=== PATIENT | male | born 1955 | race Caucasian/White ===

== ENCOUNTER 2022-03-31 11:05 | Observation (INO) ==
--- NOTE | 2022-03-31 11:48 | Emergency Department Note ---
Impression & Plan Weakness, CARRENO (dyspnea on exertion), Light-headed ED Provider Note Provider: Mg Albarran MD DATE OF SERVICE: 03/31/2022 CHIEF COMPLAINT: Shortness of breath/dizziness HISTORY OF PRESENT ILLNESS: Patient is a 66-year-old gentleman past medical history of hypertrophic valve replacement, CAD and CABG, hypertension, nonsustained ventricular tachycardia presenting here today after experiencing some shortness of breath and dizziness/lightheadedness after going up 3 flights of stairs today while cleaning an apartment. Patient states he was volunteering helping out this morning after coming up about 3 flights of stairs began to feel lightheaded and short of breath. Denies any chest pain or pressure. States in the past week his been feeling somewhat fatigued. 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 Denies any significant palpitations recently. Again denies chest pain. Denies abdominal symptoms of nausea vomiting or diarrhea. Denies significant leg swelling. States just some generalized fatigue. Denies significant dizziness now or shortness of breath but again this was a bit earlier. Patient states he has been compliant with his aspirin at home. States occasionally has some vertigo issues related to his years but not currently denies recent bug bites or rashes. Denies URI symptoms. REVIEW OF SYSTEMS: A total of 10 review of systems was obtained and negative except as stated above in the HPI. PAST MEDICAL HISTORY: As noted above MEDICATIONS:reviewed home medications SOCIAL HISTORY: Denies smoking PHYSICAL EXAM: GENERAL: alert and oriented in no acute distress on stretcher Head: normocephalic and atraumatic EYES: No injection, discharge or icterus. NECK: Trachea midline. ENT: Mucous membranes pink and moist. LUNGS: Airway patent. No retractions. Breath sounds clear with good air entry bilaterally. HEART: Regular rate and rhythm. No chest wall tenderness ABDOMEN: Soft and non-tender, without guarding or rebound. SKIN: Acyanotic, warm, dry, without rashes EXTREMITIES: Without swelling, tenderness or deformity NEUROLOGICAL: No focal deficits. No aphasia. No facial droop or slurred speech. Ambulatory. EK bpm normal sinus rhythm. No PVC or PAC noted. Left axis and right bundle branch block are noted. No acute ST segment elevation is noted. Previous from the [facility] medical record from December 28 of this year, appears similar. CONTINUOUS CARDIAC MONITORING: was ordered and showed a heart rate of 50s-60s bpm in normal sinus rhythm to sinus bradycardia Patient's laboratory studies and imaging reviewed. Differential includes Infection, dehydration, metabolic abnormality, hypo/hyperglycemia, electrolyte disturbance, anemia, hypoxia, cardiac sources, intracerebral event, toxicologic, neurologic, as well as other pathologies. IMPRESSION/MEDICAL DECISION MAKING: No significant GI symptoms of benign abdomen. No significant focal deficits and have low suspicion at this time for CVA. Symptoms seem somewhat exertionally provoked due to coming up the stairs but without chest pain. Does have a history of arrhythmia but denies significant palpitations. No obvious arrhythmia noted here although he again he has been weaning his amiodarone. Rec ords indicate he had a cardiac catheterization performed last March 12 months ago with nonobstructive CAD. Lyme and anaplasmosis testing was sent as well as COVID testing. Blood work without anemia or leukocytosis. Chest x-ray unremarkable. LFTs unremarkable. Urinalysis negative. COVID-negative. Chemistries without significant abnormality beyond some hyperglycemia of 221. Patient did eat earlier. Troponin is not significantly elevated. Again denies any actual chest pain or pressure. Lyme test negative. Reassessed the patient and girlfriend at bedside. Further discussion he states this is actually a separate episode of having a bit of lightheadedness and bit of shortness of breath going up the stairs today and yesterday walking to get a photo about 150 yards began to experience similar symptoms. No focal symptoms or slurred speech and doubt this represents CVA. Girlfriend relays there is been multiple episodes over the last week or 2. Heart score is elevated just based on risk factors. Discussed with him options of outpatient follow-up versus observation but given the multiple recurrent episodes discussed that observation may be best option with further evaluation. He and girlfriend were in agreement and the hospitalist was contacted. DIAGNOSIS: Weak, dyspnea on exertion, lightheaded DISPOSITION: Hospitalist will evaluate Patient was agreeable with this plan. Past Med/Surg History Social History Smoking Status: Never smoker Second Hand Exposure: No; Hx Alcohol Use: Yes Hx Substance Use: No Preferred Language: German Portable Trackman Required: Yes Beliefs That Will Affect Care: None Current Living Situation: Significant Other Feels Safe at Home: Yes Assistive Devices: None Allergies Allergies Allergy/AdvReac Type Severity Reaction Status Date / Time niacin Allergy Intermediate FLUSHING Verified 07/12/16 22:35 atorvastatin Allergy Unknown MUSCLE Verified 07/12/16 22:35 ACHES Home Meds Home Medications Medication Instructions Recorded Confirmed amiodarone 200 mg tablet 200 mg PO DAILY 03/21/21 03/21/21 aspirin 81 mg tablet 81 mg PO DAILY 03/21/21 03/21/21 fluticasone propionate 50 2 spray intranasal DAILY 03/21/21 03/21/21 mcg/actuation nasal spray,suspension loratadine 10 mg tablet (Claritin) 10 mg PO DAILY 03/21/21 03/21/21 pantoprazole 40 mg tablet,delayed 40 mg PO DAILY 03/21/21 03/21/21 release rosuvastatin 40 mg PO DAILY 03/21/21 03/21/21 Previous Rx's Medication Instructions Recorded metoprolol succinate 50 mg 25 mg PO DAILY #30 tabs 03/21/21 tablet,extended release 24 hr Results & Data (ED) Vital Signs Vital Signs - 24 hr 03/31/22 11:15 03/31/22 11:40 03/31/22 11:51 Temperature 36.4 C L Temperature Source Temporal Artery Scan Pulse Rate 68 Pulse Rate [Apical] 67 Respiratory Rate 16 20 Respiratory Effort / Characteristics Non-Labored Spontaneous Non-Labored Spontaneous Respiratory Depth Normal Normal Respiratory Pattern Regular Regular Blood Pressure 148/86 H Blood Pressure [Left Arm] 135/81 Blood Pressure Mean 106 Blood Pressure Mean [Left Arm] 99 Blood Pressure Position Sitting Pulse Oximetry 96 97 98 Oxygen Delivery Method Room Air Room Air Room Air Sepsis Recent Fever Within 48 Hours No Sepsis New/Unexplained Change in Mental Status No Sepsis Action Taken by Nursing No Action Required Laboratory Data Result diagrams: 03/31/22 11:44 03/31/22 11:44 Lab Results 03/31/22 03/31/22 03/31/22 Range/Units 11:40 11:44 11:44 WBC 6.16 (4.8-10.8) K/ul RBC 5.04 (4.63-6.08) M/uL Hgb 15.3 (14.0-18.0) g/dl Hct 44.9 (40.1-51.0) % MCV 89.1 (80.0-100.0) fL MCH 30.4 (25.0-34.0) pg MCHC 34.1 (32.0-36.0) g/dL RDW Std Deviation 42.5 (36.4-46.3) fL RDW Coeff of [place] 13.1 (11.5-14.5) % Plt Count 123 L (130-400) K/uL MPV 12.1 (9.4-12.4) fL Immature Gran % (Auto) 0.2 % Neut % (Auto) 70.3 % Lymph % (Auto) 22.4 % [place] % (Auto) 5.2 % Eos % (Auto) 1.3 % Baso % (Auto) 0.6 % Neut # (Auto) 4.33 (1.4-6.5) K/uL Lymph # (Auto) 1.38 (1.2-3.4) K/uL [place] # (Auto) 0.32 (0.24-0.82) K/uL Eos # (Auto) 0.08 (0-0.50) K/uL Baso # (Auto) 0.04 (0-0.2) K/uL Immature Gran # (Auto) 0.01 (0.00-0.02) K/uL Sodium (136-145) mmol/L Potassium (3.5-5.1) mmol/L Chloride (98-107) mmol/L Carbon Dioxide (21-32) mmol/L Anion Gap (3-11) BUN (6-23) mg/dl Creatinine (0.6-1.4) mg/dl Est Cr Clr Drug Dosing ml/min Est GFR ( Amer) ml/min Est GFR (Non-Af Amer) ml/min BUN/Creatinine Ratio (10-20) Glucose (70-99(Fasting)) mg/dl Calcium (8.5-10.1) mg/dl Magnesium (1.7-2.4) mg/dl Total Bilirubin (0.2-1.0) mg/dl AST (13-39) U/L ALT (7-52) U/L Alkaline Phosphatase (34-104) U/L Troponin I High Sens (0-20) pg/ml Total Protein (6.0-8.3) gm/dl Albumin (3.4-5.0) gm/dl Globulin (2.5-4.0) gm/dl Albumin/Globulin Ratio (0.9-2) TSH (0.300-4.500) uIu/ml Urine Color Yellow Urine Appearance Clear (Clear) Urine pH 6.0 (4.5-7.5) Ur Specific [place] 1.014 (1.000-1.030) Urine Protein Negative (Negative) Urine Glucose (UA) Trace H (Negative) Urine Ketones Negative (Negative) Urine Blood Negative (Negative) Urine Nitrite Negative (Negative) Urine Bilirubin Negative (Negative) Urine Urobilinogen Negative (Negative) Ur Leukocyte Esterase Negative (Negative) Anaplasma Smear Cancelled See Comment Lyme Disease IgG Ab (Negative) Lyme Disease IgM Ab (Negative) SARS-CoV-2, RNA, NAAT (NEGATIVE) 03/31/22 03/31/22 03/31/22 Range/Units 11:44 11:44 11:44 WBC (4.8-10.8) K/ul RBC (4.63-6.08) M/uL Hgb (14.0-18.0) g/dl Hct (40.1-51.0) % MCV (80.0-100.0) fL MCH (25.0-34.0) pg MCHC (32.0-36.0) g/dL RDW Std Deviation (36.4-46.3) fL RDW Coeff of [place] (11.5-14.5) % Plt Count (130-400) K/uL MPV (9.4-12.4) fL Immature Gran % (Auto) % Neut % (Auto) % Lymph % (Auto) % [place] % (Auto) % Eos % (Auto) % Baso % (Auto) % Neut # (Auto) (1.4-6.5) K/uL Lymph # (Auto) (1.2-3.4) K/uL [place] # (Auto) (0.24-0.82) K/uL Eos # (Auto) (0-0.50) K/uL Baso # (Auto) (0-0.2) K/uL Immature Gran # (Auto) (0.00-0.02) K/uL Sodium 138 (136-145) mmol/L Potassium 3.9 (3.5-5.1) mmol/L Chloride 105 (98-107) mmol/L Carbon Dioxide 25 (21-32) mmol/L Anion Gap 8 (3-11) BUN 19 (6-23) mg/dl Creatinine 0.97 (0.6-1.4) mg/dl Est Cr Clr Drug Dosing 91.0 ml/min Est GFR ( Amer) 94.6 ml/min Est GFR (Non-Af Amer) 81.6 ml/min BUN/Creatinine Ratio 19.6 (10-20) Glucose 221 H (70-99(Fasting)) mg/dl Calcium 8.9 (8.5-10.1) mg/dl Magnesium 2.0 (1.7-2.4) mg/dl Total Bilirubin 1.1 H (0.2-1.0) mg/dl AST 18 (13-39) U/L ALT 27 (7-52) U/L Alkaline Phosphatase 62 (34-104) U/L Troponin I High Sens 12.0 (0-20) pg/ml Total Protein 7.2 (6.0-8.3) gm/dl Albumin 4.5 (3.4-5.0) gm/dl Globulin 2.7 (2.5-4.0) gm/dl Albumin/Globulin Ratio 1.7 (0.9-2) TSH 1.185 (0.300-4.500) uIu/ml Urine Color Urine Appearance (Clear) Urine pH (4.5-7.5) Ur Specific [place] (1.000-1.030) Urine Protein (Negative) Urine Glucose (UA) (Negative) Urine Ketones (Negative) Urine Blood (Negative) Urine Nitrite (Negative) Urine Bilirubin (Negative) Urine Urobilinogen (Negative) Ur Leukocyte Esterase (Negative) Anaplasma Smear Lyme Disease IgG Ab Negative (Negative) Lyme Disease IgM Ab Negative (Negative) SARS-CoV-2, RNA, NAAT (NEGATIVE) 03/31/22 Range/Units 11:58 WBC (4.8-10.8) K/ul RBC (4.63-6.08) M/uL Hgb (14.0-18.0) g/dl Hct (40.1-51.0) % MCV (80.0-100.0) fL MCH (25.0-34.0) pg MCHC (32.0-36.0) g/dL RDW Std Deviation (36.4-46.3) fL RDW Coeff of [place] (11.5-14.5) % Plt Count (130-400) K/uL MPV (9.4-12.4) fL Immature Gran % (Auto) % Neut % (Auto) % Lymph % (Auto) % [place] % (Auto) % Eos % (Auto) % Baso % (Auto) % Neut # (Auto) (1.4-6.5) K/uL Lymph # (Auto) (1.2-3.4) K/uL [place] # (Auto) (0.24-0.82) K/uL Eos # (Auto) (0-0.50) K/uL Baso # (Auto) (0-0.2) K/uL Immature Gran # (Auto) (0.00-0.02) K/uL Sodium (136-145) mmol/L Potassium (3.5-5.1) mmol/L Chloride (98-107) mmol/L Carbon Dioxide (21-32) mmol/L Anion Gap (3-11) BUN (6-23) mg/dl Creatinine (0.6-1.4) mg/dl Est Cr Clr Drug Dosing ml/min Est GFR ( Amer) ml/min Est GFR (Non-Af Amer) ml/min BUN/Creatinine Ratio (10-20) Glucose (70-99(Fasting)) mg/dl Calcium (8.5-10.1) mg/dl Magnesium (1.7-2.4) mg/dl Total Bilirubin (0.2-1.0) mg/dl AST (13-39) U/L ALT (7-52) U/L Alkaline Phosphatase (34-104) U/L Troponin I High Sens (0-20) pg/ml Total Protein (6.0-8.3) gm/dl Albumin (3.4-5.0) gm/dl Globulin (2.5-4.0) gm/dl Albumin/Globulin Ratio (0.9-2) TSH (0.300-4.500) uIu/ml Urine Color Urine Appearance (Clear) Urine pH (4.5-7.5) Ur Specific [place] (1.000-1.030) Urine Protein (Negative) Urine Glucose (UA) (Negative) Urine Ketones (Negative) Urine Blood (Negative) Urine Nitrite (Negative) Urine Bilirubin (Negative) Urine Urobilinogen (Negative) Ur Leukocyte Esterase (Negative) Anaplasma Smear Lyme Disease IgG Ab (Negative) Lyme Disease IgM Ab (Negative) SARS-CoV-2, RNA, NAAT NEGATIVE (NEGATIVE) Imaging Data Radiologist's Impression: Chest X-Ray 03/31/22 11:39 XR chest 1V portable CLINICAL HISTORY: weakness. Evaluate cardiopulmonary status COMPARISON STUDY: No previous studies for comparison. TECHNIQUE: 1 view of the chest FINDINGS: Single frontal view of the chest demonstrates the cardiomediastinal silhouette to be within normal limits. The patient is status post previous cardiothoracic surgery. The lungs are clear of alveolar opacities. There is no evidence for pleural effusion. There is no evidence for vascular congestion. There is no acute osseous pathology. IMPRESSION: 1. No acute cardiopulmonary disease. ACT 112: Negative or not required by law. Electronically signed by: Osito Tanner M.D. 03/31/2022 11:50 AM Discharge Plan Visit Data Chief Complaint: Weakness Stated Complaint: WEAK, LIGHTHEADED, CARDIAC HISTORY ED Provider: Mg Albarran Discharge Problem: Weakness, CARRENO (dyspnea on exertion), Light-headed Patient Disposition: Being Evaluated by Hospitalist Forms Stand Alone Forms: My [facility] Prescriptions Prescriptions: No Action rosuvastatin 20 mg 40 mg PO DAILY amiodarone 200 mg Tablet 200 mg PO DAILY pantoprazole 40 mg Tablet,Delayed Release (Dr/Ec) 40 mg PO DAILY aspirin 81 mg Tablet 81 mg PO DAILY fluticasone propionate 50 mcg/actuation [place],Suspension 2 spray INTRANASAL DAILY loratadine [Claritin] 10 mg Tablet 10 mg PO DAILY metoprolol succinate 50 mg tablet extended release 24 hr 25 mg PO DAILY Qty: 30 6RF Referrals Referrals: Leif Bacon MD [Outside Practitioners] -
--- NOTE | 2022-03-31 11:51 | XRay Report ---
XR chest 1V portable CLINICAL HISTORY: weakness. Evaluate cardiopulmonary status COMPARISON STUDY: No previous studies for comparison. TECHNIQUE: 1 view of the chest FINDINGS: Single frontal view of the chest demonstrates the cardiomediastinal silhouette to be within normal li mits. The patient is status post previous cardiothoracic surgery. The lungs are clear of alveolar opa cities. There is no evidence for pleural effusion. There is no evidence for vascular congestion. Ther e is no acute osseous pathology. IMPRESSION: 1. No acute cardiopulmonary disease. ACT 112: Negative or not required by law. Electronically signed by: Osito Tanner M.D. 03/31/2022 11:50 AM
[2022-03-31 11:57] LABS: Basophils # (auto) 0.04 K/uL (0-0.2); Basophils % (auto) 0.6 %; Eosinophils # (auto) 0.08 K/uL (0-0.50); Eosinophils % (auto) 1.3 %; Hematocrit (blood only) 44.9 % (40.1-51.0); Hemoglobin 15.3 g/dl (14.0-18.0); Immature Granulocytes # (auto) 0.01 K/uL (0.00-0.02); Immature Granulocytes % (auto) 0.2 %; Lymphocytes # (auto) 1.38 K/uL (1.2-3.4); Lymphocytes % (auto) 22.4 %; Mean Corpuscular Hemoglobin 30.4 pg (25.0-34.0); Mean Corpuscular Hgb Conc 34.1 g/dL (32.0-36.0); Mean Corpuscular Volume 89.1 fL (80.0-100.0); Mean Platelet Volume 12.1 fL (9.4-12.4); Monocytes # (auto) 0.32 K/uL (0.24-0.82); Monocytes % (auto) 5.2 %; Neutrophils # (auto) 4.33 K/uL (1.4-6.5); Neutrophils % (auto) 70.3 %; Platelet Count 123 K/uL (130-400); RDW Coefficient of Variation 13.1 % (11.5-14.5); RDW Standard Deviation 42.5 fL (36.4-46.3); Red Blood Count 5.04 M/uL (4.63-6.08); White Blood Count 6.16 K/ul (4.8-10.8)
[2022-03-31 12:19] LABS: Albumin Globulin Ratio 1.7 (0.9-2); Albumin Level 4.5 gm/dl (3.4-5.0); BUN Creatinine Ratio 19.6 (10-20); Bilirubin,Total 1.1 mg/dl (0.2-1.0); Calcium 8.9 mg/dl (8.5-10.1); Est GFR (African American) 94.6 ml/min; Est GFR (Non-African American) 81.6 ml/min; Globulin 2.7 gm/dl (2.5-4.0); Potassium 3.9 mmol/L (3.5-5.1); Total Protein 7.2 gm/dl (6.0-8.3)
[2022-03-31 12:26] LABS: Appearance Urine Clear (Clear); Bilirubin Urine Negative (Negative); Blood Urine Negative (Negative); Color Urine Yellow; Glucose Urine UA Trace (Negative); Ketones Urine Negative (Negative); Leukocyte Esterase Urine Negative (Negative); Nitrite Urine Negative (Negative); Protein Urine Negative (Negative); Specific Gravity Urine 1.014 (1.000-1.030); Urobilinogen Urine Negative (Negative)
[2022-03-31 12:54] LABS: Lyme Ab IgG w/WB Rflx Negative (Negative); Lyme Ab IgM w/WB Rflx Negative (Negative)
--- NOTE | 2022-03-31 13:52 | Electrocardiogram Report ---
Test Reason : Blood Pressure : / mmHG Vent. Rate : 063 BPM Atrial Rate : 063 BPM P-R Int : 200 ms QRS Dur : 146 ms QT Int : 452 ms P-R-T Axes : 055 -38 020 degrees QTc Int : 462 ms Normal sinus rhythm Left axis deviation Right bundle branch block Inferior infarct , age undetermined Abnormal ECG No previous ECGs available Confirmed by Mahesh Morton ([id number]) on 03/31/2022 1:52:22 PM Referred By: Confirmed By:Mahesh Morton
--- NOTE | 2022-03-31 15:06 | History & Physical Report ---
Date of Service March 31, 2022 Assessment & Plan (1) CARRENO (dyspnea on exertion): (2) Light-headed: Plan: Patient 66-year-old male with history of coronary disease, status post stent placement, status post CABG, history of NSVT, Status post aortic valve repair, A. fib, hypertension, other problems noted below presenting with weakness and shortness of breath. Dyspnea on exertion, lightheadedness History of CAD, status post stent placement, status post CABG History of NSVT History of atrial fibrillation -Rule out ACS Rule out arrhythmia -Initial troponin negative, serial troponins ordered EKG: Sinus rhythm Continue telemetry monitoring Update echocardiogram Cardiology consulted -Continue usual metoprolol, aspirin, Lipitor Resume amiodarone 100 mg p.o. daily per last visit with Dr. Hameed Hypertension -Continue metoprolol Diabetes type 2 -Not on any medications COPD -No signs of exacerbation ELLIS -We will inquire if patient uses CPAP, will order accordingly DVT prophylaxis SCDs for now Full code per patient Disposition Anticipate discharge to home when medically stable plan of care discussed with patient in detail and at length all questions answered he is understanding, agreeable, comfortable with the plan of care History of Present Illness Primary Care Provider: Roseline Fuentes, DO Patient 66-year-old male with history of coronary disease, status post stent placement, status post CABG, history of NSVT, Status post aortic valve repair, A. fib, hypertension, other problems noted below presenting with weakness and shortness of breath. Patient follows with [facility] cardiology service and Dr. Hameed. Patient had a visit with Dr. Hameed recently and was advised to have EPS to check for V. tach versus NSVT. He was also advised to decrease amiodarone to 100 mg p.o. daily Recently, patient, on his own, further decreased his amiodarone to 50 mg p.o. daily in light of his upcoming eye surgery. Today, patient after climbing up 3 flights of steps, noted to have unusual shortness of breath and lightheadedness. He reports that he is usually active and does not experience shortness of loss of breath easily. He also feels unusually weak. Denies palpitations, chest pain, syncope. No fevers or chills. He did have 2 glasses of wine last night, reports sleeping well. No other symptoms EKG: Normal sinus rhythm, no signs of acute ischemia or infarct Allergies Allergy/AdvReac Type Severity Reaction Status Date / Time niacin Allergy Intermediate FLUSHING Verified 07/12/16 22:35 atorvastatin Allergy Unknown MUSCLE Verified 07/12/16 22:35 ACHES Home Medications Medication Instructions Recorded Confirmed Type amiodarone 200 mg tablet 50 mg PO DAILY 03/21/21 03/31/22 History aspirin 81 mg tablet 81 mg PO DAILY 03/21/21 03/31/22 History fluticasone propionate 50 2 spray intranasal DAILY 03/21/21 03/21/21 History mcg/actuation nasal spray,suspension loratadine 10 mg tablet (Claritin) 10 mg PO DAILY 03/21/21 03/21/21 History metoprolol succinate 50 mg 25 mg PO DAILY #30 tabs 03/21/21 03/31/22 Rx tablet,extended release 24 hr pantoprazole 40 mg tablet,delayed 40 mg PO DAILY 03/21/21 03/31/22 History release rosuvastatin 40 mg PO DAILY 03/21/21 03/31/22 History Past Med/Surg History Social History Smoking Status: Never smoker Second Hand Exposure: No; Hx Alcohol Use: Yes Alcohol type: wine Hx Substance Use: No Preferred Language: [place] Locksmith Required: No Beliefs That Will Affect Care: None Current Living Situation: Significant Other Other Information That Helps Us Care for You: No Feels Safe at Home: Yes Safety Concerns: Feels Safe At This Time Assistive Devices: None Review of Systems Review of Systems: all noted and negative except for above Physical Exam Physical Exam: General- oriented x 3, not in distress, speaks in sentences with no effort or accessory muscle use Head- atraumatic Eyes- PERRL, EOMI, anicteric ENT- oropharynx clear Neck- supple, no JVD, no adenopathy, no thyromegaly; carotids +2/2, no bruits appreciated Lungs- clear to auscultation bilaterally, no rales/wheezes Heart- normal rate, regular rhythm; no murmur, no gallop, no rub appreciated Abdomen- normal bowel sounds, nondistended, soft, nontender, no masses or hepatosplenomegaly Extremities- no pretibial edema, no calf tenderness; peripheral pulses intact Neuro- alert, oriented x 3; CN 2-12 grossly intact; motor 5/5 bilaterally;sensation 100% on all extremities; no other gross focal neurologic deficits Skin- warm & dry Results & Data Results & Data ([facility]) Vital Signs (Past 12 Hours) Vital Signs Temp Pulse Pulse Resp BP BP Pulse Ox 03/31/22 11:51 67 20 135/81 98 03/31/22 11:40 97 03/31/22 11:15 36.4 C L 68 16 148/86 H 96 O2 Del Method 03/31/22 11:51 Room Air 03/31/22 11:40 Room Air 03/31/22 11:15 Room Air all noted and reviewed including below Code Status & VTE Plan VTE Prophylaxis Plan VTE Prophylaxis will be ordered: Yes
[2022-03-31] MEDS ORDERED: ACETAMINOPHEN 325 MG TAB PO PRN (16:30)
[2022-04-01] MEDS ORDERED: CARBOHYDRATES FOR HYPOGLYCEMIA PO PRN (08:13)
[2022-04-01] MEDS ORDERED: DEXTROSE 50% 50 ML SYRINGE IV PRN (08:13)
[2022-04-01] MEDS ORDERED: GLUCAGON FOR INJ 1 MG VIAL SQ PRN (08:13)
[2022-04-01] MEDS ORDERED: GLUCOSE 10 TAB/TUBE PO PRN (08:13)
[2022-04-01] MEDS ORDERED: GLUCOSE 40% GEL 15 GM TUBE PO PRN (08:13)
[2022-04-01 08:16] VITALS: O2SAT 97
[2022-04-01] MEDS ORDERED: AMIODARONE 200 MG TAB PO SCH (09:00)
[2022-04-01] MEDS ORDERED: ROSUVASTATIN CALCIUM 20 MG TAB PO SCH (09:00)
[2022-04-01] MEDS ORDERED: METOPROLOL SUCC 25MG EXT REL TAB PO SCH (09:00)
[2022-04-01] MEDS ORDERED: PANTOprazole 40 MG TAB PO SCH (09:00)
[2022-04-01] MEDS ORDERED: ASPIRIN 81 MG ECTAB PO SCH (09:00)
--- NOTE | 2022-04-01 11:04 | Cardiology Consultation ---
Date of Consultation April 01, 2022 Assessment & Plan (1) CARRENO (dyspnea on exertion): (2) Light-headed: (3) Paroxysmal ventricular tachycardia: (4) Coronary artery disease: (5) H/O aortic valve replacement with tissue graft: Plan Patient is a complex 66-year-old male with medical issues as noted above who noted after walking up 3 flights of stairs twice yesterday with feeling sensation of weakness and fatigue. Has felt more fatigued recently and subsequently reduced amiodarone dosing. His underlying history is notable for paroxysmal ventricular arrhythmias with preserved ejection fraction, stable coronary artery disease. He is undergone prior aortic valve replacement and aortic root repair with Dacron graft stable by current echocardiogram There is no evidence of myocardial ischemia by EKG or troponin. Last cardiac catheterization 1 year ago Issues addressed as follows 1. Exertional fatigue at moderately high level workload: Suspect multifactorial including resting bradycardia contributing. Recommend resuming amiodarone at 100 mg/day reduce metoprolol succinate to 12.5 mg p.o. daily. May be discharged with recommendations for Lexiscan stress nuclear testing post hospital discharge. Patient avoid strenuous activity until evaluation complete 2. Paroxysmal ventricular arrhythmias: Discussed in detail with patient recommendations as above. Patient agreeable to proceeding with EP study to discern whether pacer defibrillator warranted in long-term management with preserved ejection fraction present. We will contact EP to arrange outpatient procedure 3. Status post aortic valve replacement and aortic root repair: Normal valve function, aortic root size, no aortic insufficiency on echocardiogram 4. Coronary artery disease, stable: Patient on beta-haydee aspirin and statin. Evaluation as planned above History of Present Illness Reason for Consultation: Exertional fatigue Requesting Physician: Dr. Gallagher Attending Physician: Tiburcio Gallagher MD History of Present Illness Patient is a 66-year-old male with complex cardiac issues which includes 1. Atherosclerotic coronary artery disease status post PCI in 2005, [place] 2. Coronary artery bypass grafting x 1 with a SVG to the diagonal branch at the time of AVR, repeat cardiac catheterization March 2021 notable for diagonal disease but no high-grade obstruction otherwise 3. Aortic root replacement with a 30 mm Dacron graft, bioprosthetic AVR with a 27 mm Magna Ease bioprosthetic AVR on 04/16/2017 4. Left atrial appendage ligation with an atri-clip device at the time of AVR. 5. Postoperative atrial fibrillation, without documented recurrence. 6. Hypertension 7. Dyslipidemia 8. Paroxysmal SVT and VT, asymptomatic 9. RBBB 10. Cardiac MRI 04/2021 noted scar in subendocardial infarct of the basal to mid septal and inferior wall suggestive of prior myocardial infarction on cardiac with preserved ejection fraction 11. COPD 12. ELLIS Patient is referred for consultation after admission through ER after presenting with symptoms of exertional fatigue after walking up 3 flights of stairs, twice. Noted mild lightheadedness but no sensation of tachypalpitations or chest pain. No sustained symptoms. Has been recommended to undergo EP study to assess whether pacer/defibrillator would be indicated in the setting of past nonsustained ventricular tachycardia with preserved ejection fraction. Has felt more fatigued recently and self reduced amiodarone to 50 mg/day. No fevers chills or unexplained infections. No bleeding difficulties. Appetite and weight are stable. EKG with sinus rhythm and chronic right bundle branch block but no acute changes. Troponins negative Echocardiogram with preserved ejection fraction and no noted wall motion abnormalities. Aortic valve bioprosthesis functioning normal Allergies Allergy/AdvReac Type Severity Reaction Status Date / Time niacin Allergy Intermediate FLUSHING Verified 07/12/16 22:35 atorvastatin Allergy Unknown MUSCLE Verified 07/12/16 22:35 ACHES Home Medications Medication Instructions Recorded Confirmed Type amiodarone 200 mg tablet 50 mg PO DAILY 03/21/21 03/31/22 History aspirin 81 mg tablet 81 mg PO DAILY 03/21/21 03/31/22 History metoprolol succinate 50 mg 25 mg PO DAILY #30 tabs 03/21/21 03/31/22 Rx tablet,extended release 24 hr pantoprazole 40 mg tablet,delayed 40 mg PO DAILY 03/21/21 03/31/22 History release rosuvastatin 40 mg PO DAILY 03/21/21 03/31/22 History Patient History Social History Smoking Status: Never smoker Second Hand Exposure: No; Hx Alcohol Use: Yes Alcohol type: wine Hx Substance Use: No Preferred Language: Kinyarwanda 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: No Beliefs That Will Affect Care: None Current Living Situation: Significant Other Other Information That Helps Us Care for You: No Feels Safe at Home: Yes Safety Concerns: Feels Safe At This Time Assistive Devices: None Review of Systems Review of Systems: All systems reviewed & are unremarkable except as noted in HPI & below Physical Exam Constitutional: WD/WN, vitals as above Eyes: PERRL, conjunctivae normal, anicteric sclerae ENMT: external ear and nose normal, oropharynx normal Neck: trachea midline, no thyromegaly Respiratory: normal respiratory effort, lungs clear to auscultation Cardiovascular: Rate/Rhythm: regular rate and regular rhythm Heart Sounds: normal S1 and normal S2; no gallop and no murmur Palpation: normal PMI Vessels: normal carotid upstroke and radial pulses present; no JVD and no carotid bruit Extremities: no edema Gastrointestinal (Abdomen): normal bowel sounds, soft, nontender, no hepatosplenomegaly Musculoskeletal: no cyanosis or clubbing, extremities motor strength 5/5 Skin: no rashes, warm and dry Neurologic: PERRL, EOMI, accommodation nl, no face palsy, no dysarthria Psychiatric: A+Ox3, euthymic affect Results & Data ([facility]) Vital Signs (Past 12 Hours) Vital Signs Temp Pulse Pulse Resp BP Pulse Ox O2 Del Method 04/01/22 08:00 36.6 C 56 L 18 147/76 H 97 Room Air 04/01/22 07:50 45 L 04/01/22 03:14 36.5 C 54 L 18 136/79 96 Room Air 03/31/22 23:24 36.5 C 51 L 18 135/73 95 Room Air Laboratory Results Laboratory Results - last 24 hr 03/31/22 03/31/22 03/31/22 11:40 11:44 11:44 WBC 6.16 RBC 5.04 Hgb 15.3 Hct 44.9 MCV 89.1 MCH 30.4 MCHC 34.1 RDW Std Deviation 42.5 RDW Coeff of Warren 13.1 Plt Count 123 L MPV 12.1 Immature Gran % (Auto) 0.2 Neut % (Auto) 70.3 Lymph % (Auto) 22.4 Hardin % (Auto) 5.2 Eos % (Auto) 1.3 Baso % (Auto) 0.6 Neut # (Auto) 4.33 Lymph # (Auto) 1.38 Hardin # (Auto) 0.32 Eos # (Auto) 0.08 Baso # (Auto) 0.04 Immature Gran # (Auto) 0.01 Sodium Potassium Chloride Carbon Dioxide Anion Gap BUN Creatinine Est Cr Clr Drug Dosing Est GFR ( Amer) Est GFR (Non-Af Amer) BUN/Creatinine Ratio Glucose Calcium Magnesium Total Bilirubin AST ALT Alkaline Phosphatase Troponin I High Sens Total Protein Albumin Globulin Albumin/Globulin Ratio TSH Urine Color Yellow Urine Appearance Clear Urine pH 6.0 Ur Specific Imperial 1.014 Urine Protein Negative Urine Glucose (UA) Trace H Urine Ketones Negative Urine Blood Negative Urine Nitrite Negative Urine Bilirubin Negative Urine Urobilinogen Negative Ur Leukocyte Esterase Negative Anaplasma Smear Cancelled See Comment Lyme Disease IgG Ab Lyme Disease IgM Ab SARS-CoV-2, RNA, NAAT 03/31/22 03/31/22 03/31/22 11:44 11:44 11:44 WBC RBC Hgb Hct MCV MCH MCHC RDW Std Deviation RDW Coeff of [place] Plt Count MPV Immature Gran % (Auto) Neut % (Auto) Lymph % (Auto) Hardin % (Auto) Eos % (Auto) Baso % (Auto) Neut # (Auto) Lymph # (Auto) Hardin # (Auto) Eos # (Auto) Baso # (Auto) Immature Gran # (Auto) Sodium 138 Potassium 3.9 Chloride 105 Carbon Dioxide 25 Anion Gap 8 BUN 19 Creatinine 0.97 Est Cr Clr Drug Dosing 91.0 Est GFR ( Amer) 94.6 Est GFR (Non-Af Amer) 81.6 BUN/Creatinine Ratio 19.6 Glucose 221 H Calcium 8.9 Magnesium 2.0 Total Bilirubin 1.1 H AST 18 ALT 27 Alkaline Phosphatase 62 Troponin I High Sens 12.0 Total Protein 7.2 Albumin 4.5 Globulin 2.7 Albumin/Globulin Ratio 1.7 TSH 1.185 Urine Color Urine Appearance Urine pH Ur Specific [place] Urine Protein Urine Glucose (UA) Urine Ketones Urine Blood Urine Nitrite Urine Bilirubin Urine Urobilinogen Ur Leukocyte Esterase Anaplasma Smear Lyme Disease IgG Ab Negative Lyme Disease IgM Ab Negative SARS-CoV-2, RNA, NAAT 03/31/22 03/31/22 04/01/22 11:58 18:08 00:52 WBC RBC Hgb Hct MCV MCH MCHC RDW Std Deviation RDW Coeff of [place] Plt Count MPV Immature Gran % (Auto) Neut % (Auto) Lymph % (Auto) Hardin % (Auto) Eos % (Auto) Baso % (Auto) Neut # (Auto) Lymph # (Auto) Hardin # (Auto) Eos # (Auto) Baso # (Auto) Immature Gran # (Auto) Sodium Potassium Chloride Carbon Dioxide Anion Gap BUN Creatinine Est Cr Clr Drug Dosing Est GFR ( Amer) Est GFR (Non-Af Amer) BUN/Creatinine Ratio Glucose Calcium Magnesium Total Bilirubin AST ALT Alkaline Phosphatase Troponin I High Sens 11.8 15.1 Total Protein Albumin Globulin Albumin/Globulin Ratio TSH Urine Color Urine Appearance Urine pH Ur Specific Imperial Urine Protein Urine Glucose (UA) Urine Ketones Urine Blood Urine Nitrite Urine Bilirubin Urine Urobilinogen Ur Leukocyte Esterase Anaplasma Smear Lyme Disease IgG Ab Lyme Disease IgM Ab SARS-CoV-2, RNA, NAAT NEGATIVE
[2022-04-01] MEDS ORDERED: INSULIN ASPART PER UNIT SC SCH (11:30)
--- NOTE | 2022-04-01 12:08 | Electrocardiogram Report ---
Test Reason : Blood Pressure : / mmHG Vent. Rate : 059 BPM Atrial Rate : 059 BPM P-R Int : 190 ms QRS Dur : 130 ms QT Int : 476 ms P-R-T Axes : 117 -42 020 degrees QTc Int : 471 ms Poor data quality, interpretation may be adversely affected Sinus bradycardia Left axis deviation Right bundle branch block Abnormal ECG When compared with ECG of 31-MAR-2022 11:28, No significant change was found Confirmed by Mahesh Morton ([id number]) on 04/01/2022 12:08:25 PM Referred By: REFERRED SELF Confirmed By:Mahesh Morton
[2022-04-01 12:23] VITALS: TEMP 98.1
--- NOTE | 2022-04-01 13:39 | Hospitalist Progress Note ---
Date of Service April 01, 2022 Assessment & Plan (1) CARRENO (dyspnea on exertion): (2) Light-headed: Plan: Patient is a 66 yr male with H/O coronary disease, status post stent placement, status post CABG, history of NSVT, S/P Aortic valve repair, A. fib, hypertension, other problems noted below presenting with weakness and shortness of breath. Dyspnea, dizziness Likely multifactorial--? Tachybradycardia syndrome H/O Paroxysmal ventricular arrhythmias H/O CAD S/P Stent, CABG H/O aortic valve replacement and aortic root repair with Dacron graft H/O atrial fibrillation --Cardiac enzymes negative TSH normal ECHO: Sinus bradycardia, left ventricular systolic function is normal. Mild concentric LVH. Left ventricle wall motion is normal. EF 60 to 65%. Bioprosthetic aortic valve. Bioprosthetic leaflets are thin and move normally. The gradient is normal for this prosthetic aortic valve. Normal inferior vena cava diameter and respiratory variation suggesting normal central venous pressure. Doppler findings do not suggest pulmonary hypertension. --Appreciate Cardiology Input -- Resume Amiodarone 100 mg daily -- Decrease metoprolol succinate to 12.5 mg daily as suggested by cardiology Needs outpatient Lexiscan nuclear stress test, EP study Advised to follow-up with cardiology upon discharge Hypertension Continue metoprolol DM II HbA1: 6.5 in October 2021 Monitor BGs Diet controlled COPD No signs of exacerbation ELLIS As per records DVT Px: SCDs for now Code Status Full code Admission and Anticipated Discharge Date Admission Date: March 31, 2022 Subjective Patient is seen and examined at bedside Dizziness, dyspnea, weakness resolved Offers no new complaints today Discussed with cardiology today Patient denies any chest pain, nausea, abdominal pain Offers no other complaints Eager to get discharged Review of Systems Review of Systems: All systems reviewed & are unremarkable except as noted in Subjective Physical Exam Physical Exam: Physical Exam: Vitals signs as noted above General Appearance:Moderately built and nourished, no apparent distress Head: normocephalic, Atraumatic Eyes: normal inspection, EOMI Neck: supple, Trachea midline Respiratory/Chest: Normal breath sounds, CTA, No accessory muscle use Cardiovascular: S1, S2, No murmur Abdomen/GI:Soft, Non tender, Bowel sounds present Extremities/Musculoskeletal:normal inspection, no edema Neurologic/Psych:AAOX3, grossly no focal neurological deficits Skin: normal color, warm, +Healed CABG scar Results & Data Results & Data ([facility]) Vital Signs (Past 12 Hours) Vital Signs Temp Pulse Pulse Resp BP Pulse Ox O2 Del Method 04/01/22 12:00 36.7 C 61 18 153/79 H 97 Room Air 04/01/22 08:00 36.6 C 56 L 18 147/76 H 97 Room Air 04/01/22 07:50 45 L 04/01/22 03:14 36.5 C 54 L 18 136/79 96 Room Air
[2022-04-01 14:14] VITALS: BP 147/86; PULSE 67
--- NOTE | 2022-04-01 14:52 | Discharge Summary ---
Date of Service April 01, 2022 Admission HPI Per Admitting Provider Patient 66-year-old male with history of coronary disease, status post stent placement, status post CABG, history of NSVT, Status post aortic valve repair, A. fib, hypertension, other problems noted below presenting with weakness and shortness of breath. Patient follows with [facility] cardiology service and Dr. Hameed. Patient had a visit with Dr. Hameed recently and was advised to have EPS to check for V. tach versus NSVT. He was also advised to decrease amiodarone to 100 mg p.o. daily Recently, patient, on his own, further decreased his amiodarone to 50 mg p.o. daily in light of his upcoming eye surgery. Today, patient after climbing up 3 flights of steps, noted to have unusual shortness of breath and lightheadedness. He reports that he is usually active and does not experience shortness of loss of breath easily. He also feels unusually weak. Denies palpitations, chest pain, syncope. No fevers or chills. He did have 2 glasses of wine last night, reports sleeping well. No other symptoms EKG: Normal sinus rhythm, no signs of acute ischemia or infarct Admission Exam Per Admitting Provider Physical Exam Physical Exam: General- oriented x 3, not in distress, speaks in sentences with no effort or accessory muscle use Head- atraumatic Eyes- PERRL, EOMI, anicteric ENT- oropharynx clear Neck- supple, no JVD, no adenopathy, no thyromegaly; carotids +2/2, no bruits appreciated Lungs- clear to auscultation bilaterally, no rales/wheezes Heart- normal rate, regular rhythm; no murmur, no gallop, no rub appreciated Abdomen- normal bowel sounds, nondistended, soft, nontender, no masses or hepatosplenomegaly Extremities- no pretibial edema, no calf tenderness; peripheral pulses intact Neuro- alert, oriented x 3; CN 2-12 grossly intact; motor 5/5 bilaterally;sensation 100% on all extremities; no other gross focal neurologic deficits Skin- warm & dry Principal Diagnosis Dizziness/Dyspnea likely due to bradycardia arrhythmia Paroxysmal ventricular arrhythmias Discharge Data Allergies Allergy/AdvReac Type Severity Reaction Status Date / Time niacin Allergy Intermediate FLUSHING Verified 07/12/16 22:35 atorvastatin Allergy Unknown MUSCLE Verified 07/12/16 22:35 ACHES Consultations 03/31/22 13:30 ED Decision to Admit Stat 03/31/22 15:01 Consult Cardiology Routine Hospital Course (1) CARRENO (dyspnea on exertion): (2) Light-headed: Patient is a 66 yr male with H/O coronary disease, status post stent placement, status post CABG, history of NSVT, S/P Aortic valve repair, A. fib, hypertension, other problems noted below presenting with weakness and shortness of breath. Dyspnea, dizziness Likely multifactorial--? Tachybradycardia syndrome H/O Paroxysmal ventricular arrhythmias H/O CAD S/P Stent, CABG H/O aortic valve replacement and aortic root repair with Dacron graft H/O atrial fibrillation --Cardiac enzymes negative TSH normal ECHO: Sinus bradycardia, left ventricular systolic function is normal. Mild concentric LVH. Left ventricle wall motion is normal. EF 60 to 65%. Biopro sthetic aortic valve. Bioprosthetic leaflets are thin and move normally. The gradient is normal for this prosthetic aortic valve. Normal inferior vena cava diameter and respiratory variation suggesting normal central venous pressure. Doppler findings do not suggest pulmonary hypertension. --Appreciate Cardiology Input -- Resume Amiodarone 100 mg daily -- Decrease metoprolol succinate to 12.5 mg daily as suggested by cardiology Needs outpatient Lexiscan nuclear stress test, EP study Advised to follow-up with cardiology upon discharge Hypertension Continue metoprolol DM II HbA1: 6.5 in October 2021 Monitor BGs Diet controlled COPD No signs of exacerbation ELLIS As per records DVT Px: SCDs for now Code Status Full code Total Time Total Time Spent Total Time Spent (In Minutes): 48 minutes Discharge Plan Discharge Items Patient Disposition: Home - Self-Care Reason For Visit: WEAKNESS Discharge Diagnosis: Dizziness/Dyspnea likely due to bradycardia arrhythmia Paroxysmal ventricular arrhythmias Activity: Per Instructions section Exercise/Sports: Wait until after follow-up appointment Non-emergency contact: Primary Care Provider and Financial Services Technician Call non-emergency contact if: you have any medication questions, your symptoms worsen, your pain is concerning for you and you have a fever Follow-up/Referrals: Roseline Fuentes, [Primary Care Provider] - Diet: Carb Consistent or DM2 and Heart Healthy Addtl Attending Provider Instructions: Follow-up with your primary care physician in 1 week as advised Follow-up with your photovoltaic panel installer Dr. Rivera for Lexiscan nuclear stress test as outpatient as advised by your photovoltaic panel installer Follow-up with your customs compliance specialist for EP study as outpatient next Medication Changes: -- Resume taking amiodarone 100 mg daily --Decrease metoprolol succinate to 12.5 mg daily as recommended by your photovoltaic panel installer. Seek immediate medical attention if your symptoms reoccur or worsen Please take all medications as instructed on discharge list below. Please call if you have any questions or problems. You can reach a [facility] hospitalist on duty at [facility] 24 hours a day by calling [phone] Pending Studies at Discharge: No Stand-Alone Forms: My [facility], Smoking Cessation Medications and DC Order Prescriptions: New metoprolol succinate 25 mg tablet extended release 24 hr 12.5 mg PO DAILY Qty: 30 0RF Continued rosuvastatin 20 mg 40 mg PO DAILY pantoprazole 40 mg Tablet,Delayed Release (Dr/Ec) 40 mg PO DAILY aspirin 81 mg Tablet 81 mg PO DAILY Changed amiodarone 200 mg Tablet 100 mg PO DAILY Qty: 30 0RF Discontinued metoprolol succinate 50 mg tablet extended release 24 hr 25 mg PO DAILY Qty: 30 6RF Discharge Orders: Discharge Order (Routine); Ordered 04/01/22 Ordered By: Tiburcio Gallagher Admission Data Admit Date/Time: 03/31/22 13:34 Attending Provider: Tiburcio Gallagher Admit Provider: Jim Gunn Primary Care Provider: Roseline Fuentes Other Providers: Pancho Ashley Robin A. Other Interventions: Discharge Summary Assessment (RN) Last Done: 04/01/22 14:13
[2022-04-02] MEDS ORDERED: METOPROLOL SUCC 25MG EXT REL TAB PO SCH (09:00)
== END 2022-04-01 14:28 | disposition home or self-care (01) ==
LOC: 2N 11:05 → ED 11:05 → SUATTDRO 13:34 → 2N 15:59
DX: I48.91 Unspecified atrial fibrillation; R42 Dizziness and giddiness; Z95.5 Presence of coronary angioplasty implant and graft; Z79.899 Other long term (current) drug therapy; E11.9 Type 2 diabetes mellitus without complications; Z95.4 Presence of other heart-valve replacement; I47.9 Paroxysmal tachycardia, unspecified; R06.00 Dyspnea, unspecified; Z95.1 Presence of aortocoronary bypass graft; I10 Essential (primary) hypertension; I49.5 Sick sinus syndrome